=== PATIENT | female | born 1975 | race Hispanic/Latino ===

== ENCOUNTER 2017-05-02 08:32 | Day surgery (SDC) | payer OTHER ==
[2017-04-25 10:09] VITALS: BMI 23.8
[2017-05-02] MEDS: Lactated Ringer's 1,000 ML IV ONE (09:36)
[2017-05-02] MEDS ORDERED: Lactated Ringer's 1,000 ML IV ONE (09:36)
[2017-05-02] MEDS ORDERED: Lactated Ringer's 1,000 ML IV SCH (10:00)
[2017-05-02] MEDS ORDERED: ceFAZolin IV 1 gm in Dextrose 0 GM/0 ML BAG IVPB ONE (11:19)
[2017-05-02] MEDS ORDERED: ISOSULFAN BLUE 10 MG/ML ML SC ONE (11:19)
[2017-05-02] MEDS ORDERED: Lidocaine 1% Inj (20ml) ONE (11:19)
[2017-05-02] MEDS ORDERED: Bupivacaine/Epi 0.25%-1:200,000 10 ml PF inj IJ ONE (11:19)
[2017-05-02] MEDS ORDERED: Midazolam 2 MG/2 ML VIAL ONE (11:23)
[2017-05-02] MEDS ORDERED: Propofol 10 mg/ml Inj (20 ML) ONE (11:23)
[2017-05-02] MEDS ORDERED: Succinylcholine Chloride 20 mg/ml Syr (5 ml) IV ONE (11:24)
[2017-05-02] MEDS ORDERED: ceFAZolin IV 2 gm in Dextrose 1 GM/50 ML BAG IVPB ONE (11:27)
--- NOTE | 2017-05-02 12:31 | PCM.SURG1 ---
Surgeon's Initial Post Op Note - Surgeon's Notes Surgeon: Ephraim Plan Rep: Brenden Pre-Operative Diagnosis: Right breast fibroadenoma Operative Findings: right breast fibroadenoma Post-Operative Diagnosis: right breast fibroadenoma Operation Performed: right breast fibroadenoma excision Specimen/Specimens Removed: fibroadenoma Estimated Blood Loss: EBL {In ML}: 10 Date of Surgery/Procedure: 05/02/17 Time of Surgery/Procedure: 11:30
[2017-05-02] MEDS ORDERED: Oxycodone/Acetaminophen 5/325 mg Tab PO PRN (12:32)
[2017-05-02] MEDS ORDERED: HYDROmorphone 0.5 mg/0.5 ml ISec IVP PRN (12:52)
[2017-05-02 13:01] VITALS: TEMP 97.1; O2SAT 100
[2017-05-02 14:29] VITALS: BP 140/73; PULSE 89; RESP 18
--- NOTE | 2017-05-05 08:56 | OP ---
PROCEDURE DATE: 05/02/2017 PREOPERATIVE DIAGNOSIS: Fibroadenoma of right breast. POSTOPERATIVE DIAGNOSIS: Fibroadenoma of right breast. PROCEDURE DONE: Excision of right breast fibroadenoma. SURGEON: Paul Ye MD SCRAPPER: Mino Wilcox, PGY-1 resident. ANESTHESIA: General endotracheal tube anesthesia. ESTIMATED BLOOD LOSS: Around 10 mL. DRAINS: None. PATHOLOGY: Right breast fibroadenoma sent for pathology. COMPLICATIONS: None. INTRAOPERATIVE FINDINGS: The patient had a right upper outer quadrant fibroadenoma of approximately 3 x 3 cm size. INTRAOPERATIVE STEPS: This 41-year-old female who was diagnosed with a fibroadenoma of right chest a nd patient was consented for excision. Brought to the OR, placed supine on the operating table. Aft er induction of the anesthesia, the right breast was prepped and draped in a usual sterile fashion. The curvilinear incision was made on the right mid outer breast, and upper and lower flap was created . The right breast fibroadenoma was completely excised and sent off the table for the pathology. He mostasis was achieved. The wound was closed in 2 layers, subQ with 2-0 Vicryl and skin with a 4-0 Mo nocryl, and dry sterile dressing was applied. The patient tolerated the procedure well. Count of in struments and gauze was correct. There was no apparent complication. Paul Ye MD cc: [id number] TT: 05/05/2017 08:56:20 id
== END 2017-05-02 14:22 | disposition home or self-care (01) ==
LOC: C.SDS 08:32
PROVIDERS: ATTEND Surgery Surgical Critical Care
DX: D24.1 Benign neoplasm of right breast (principal)
CPT/HCPCS: 19120; 88305; J0131; J0690; J1100; J1885; J2001; J2250; J2405; J2704; J3010